=== PATIENT | female | born 1930 | race Caucasian/White ===

== ENCOUNTER 2018-10-13 23:39 | Emergency (ER) | payer OTHER ==
[2018-10-13 23:48] VITALS: RESP 16; TEMP 97.8
--- NOTE | 2018-10-14 00:14 | ED ---
Fall HPI - General Chief Complaint: Fall Stated Complaint: FALL Time Seen by Provider: 10/13/18 23:51 Source: patient, family Mode of arrival: ambulatory - History of Present Illness Initial Comments: 87-year-old female with history of aortic stenosis status post aortic valve replacement and hypertension presents today for chief complaint of fall. Patient states that she was walking downstairs she had thought that she counted 3 however there were 4 which she reached the 4th step she tripped falling sideways into the banister she was holding onto hitting her head she then swung and hit her head on the other side. Patient denies loss of consciousness. Patient does take a baby aspirin daily however is not on other anticoagulation therapy. Patient states she fell gently onto her bottom, denies any back pain, hip pain or neck pain. States given her age and head injury she was concerned for intracranial process and presented today for evaluation. Patient is accompanied by her family. Patient denies any chest pain, shorts breath, dizziness, visual changes, headache, dizziness, weakness, dyspnea on exertion or any other symptoms today are prior to falling. Patient denies any abdominal or chest trauma, nausea, vomiting, paresthesias, muscle weakness, speech changes , gait changes, sensation differences or history of recent falls. She states that this was mechanical fall nature because she had missed counted steps. Upon arrival patient appears well, she is ambulatory. VS reveal elevated BP pt states she did take her lisinopril today. Remainder of ROS (-), patient denies any recent fever, chills, abdominal pain, dysuria or hematuria, constipation or diarrhea, headaches or visual changes, or any other complaints. - Related Data Allergies Allergy/AdvReac Type Severity Reaction Status Date / Time levofloxacin [From Levaquin] Allergy Itching Verified 10/13/18 23:48 Review of Systems ROS Statement: Those systems with pertinent positive or pertinent negative responses have been documented in the HPI. ROS Other: All systems not noted in ROS Statement are negative. Constitutional: Denies: fever, chills, weakness, night sweats Eyes: Denies: eye pain, vision change ENT: Denies: ear pain, throat pain Respiratory: Denies: cough, dyspnea, wheezes, hemoptysis, stridor Cardiovascular: Denies: chest pain, palpitations, dyspnea on exertion, edema Endocrine: Denies: fatigue Gastrointestinal: Denies: abdominal pain, nausea, vomiting Genitourinary: Denies: urgency, dysuria Musculoskeletal: Denies: back pain Skin: Denies: rash, lesions Neurological: Denies: headache, weakness, numbness, paresthesias, confusion Past Medical History Past Medical History: Hypertension History of Any Multi-Drug Resistant Organisms: None Reported Past Surgical History: Adenoidectomy, Appendectomy, Hysterectomy, Tonsillectomy Additional Past Surgical History / Comment(s): valve replacement. bladder. Past Psychological History: No Psychological Hx Reported Smoking Status: Never smoker Past Alcohol Use History: None Reported Past Drug Use History: None Reported General Exam - General Exam Comments Initial Comments: General: The patient is awake and alert, in no distress, and does not appear acutely ill. Eye: +3 mm Pupils are equal, round and reactive to light, extra-ocular movements are intact. No nystagmus. There is normal conjunctiva bilaterally. No signs of icterus. Ears, nose, mouth and throat: There are moist mucous membranes and no oral lesions. Tympanic members are within normal limits bilaterally. Neck: The neck is supple, there is no tenderness or JVD. No pain to palpation midline of the cervical spine. Patient is a 40 flex, extend, laterally flex and rotate the cervical spine without difficulty or complaints of pain. No paravertebral tenderness.No stanton or racoon sign. No signs of facial trauma. No contusions or hematoma on scalp exam, no lacerations, abrasion or hematomas Cardiovascular: There is a regular rate and rhythm. No murmur, rub or gallop is appreciated. Respiratory: Lungs are clear to auscultation, respirations are non-labored, breath sounds are equal. No wheezes, stridor, rales, or rhonchi. Gastrointestinal: Soft, non-distended, non-tender abdomen without masses or organomegaly noted. There is no rebound or guarding present. Bowel sounds are unremarkable. Musculoskeletal: Patient has a pedal palpation midline or paravertebral upon palpation of the entire length of the spinal column. Normal ROM of the upper and lower extremities, no tenderness. Strength 5/5. Sensation intact of the upper and lower extremities radial and DP. Pulses equal bilaterally 2+. Neurological: A&O x 3. CN II-XII intact, There are no obvious motor or sensory deficits. Coordination intact to finger to nose. No pronator drift. No signs of gait ataxia. Speech is normal. Skin: Skin is warm and dry and no rashes or lesions are noted. Psychiatric: Cooperative, appropriate mood & affect, normal judgment. Limitations: no limitations Course Vital Signs 10/13/18 10/14/18 23:42 01:32 Temperature 97.8 F Pulse Rate 84 87 Respiratory 16 16 Rate Blood Pressure 223/108 185/72 O2 Sat by Pulse 97 100 Oximetry Medical Decision Making - Medical Decision Making No focal neurological deficits on examination. Patient is not on anticoagulation therapy. CT of the brain and C-spine obtained revealing no acute intracranial process or fracture. Patient denies any other complaints at this time. Review of systems negative, patient denies any symptoms concerning for nonmechanical cause of fall. Initial blood pressure being elevated, however review of systems negative-with well-appearing patient with well appearing patient- pt states she thinks she has white coat syndrome. She requesting discharge. This time I do feel patient is stable for discharge with primary care follow-up next 1-2 days. Patient verbalized understanding of plan, denies questions at this time. All return parameters were discussed at length with both patient and family, verbalized understanding. Discussed case with Dr. Bruce who agreed with impression and plan. Pt d/c in stable condition, ambulating without difficulty. Improvement of BP upon discharge. Disposition Clinical Impression: Fall, Head injury Disposition: HOME SELF-CARE Condition: Good Instructions: Fall Prevention for Older Adults (ED) Additional Instructions: Please use medication as discussed. Please follow-up with family doctor in the next 2 days.. Please return to emergency room if the symptoms increase or worsen or for any other concerns, as discussed. Is patient prescribed a controlled substance at d/c from ED?: No Referrals: Nonstaff,Physician [Primary Care Provider] - 1-2 days Time of Disposition: 01:32
--- NOTE | 2018-10-14 01:13 | CT ---
EXAMINATION TYPE: CT brain octavio milligan DATE OF EXAM: 10/14/2018 COMPARISON: None HISTORY: pt hit her lt side of head on a wall/rt side on a door this evening. CT DLP: 1351.5 mGycm Automated exposure control for dose reduction was used. TECHNIQUE: CT scan of the head and cervical spine are performed without contrast. FINDINGS: There is some cerebral cortical atrophy. There is no mass effect nor midline shift. There is no sign of intracranial hemorrhage. The calvarium is intact. The cervical vertebra have normal alignment. There is degenerative disc space narrowing throughout th e cervical spine with spurring of the endplates. Posterior elements are intact. There is mild multile bandar hypertrophic facet arthropathy. The skull base is intact. There is coarse trabecula in C6 vertebr a consistent with a hemangioma. The skull base appears intact. IMPRESSION: Cerebral atrophy. No acute intracranial abnormality. Spondylotic changes in the cervical spine. No fracture seen.
[2018-10-14 01:33] VITALS: BP 185/72; PULSE 87
== END 2018-10-14 01:36 | disposition home or self-care (01) ==
LOC: EC 23:39
DX: S09.90XA Unspecified injury of head, initial encounter (principal); Z88.1 Allergy status to other antibiotic agents; Z95.2 Presence of prosthetic heart valve; W10.9XXA Fall (on) (from) unspecified stairs and steps, initial encounter; Y92.009 Unspecified place in unspecified non-institutional (private) residence as the place of occurrence of the external cause
CPT/HCPCS: 70450; 72125; 99283